=== PATIENT | female | born 1965 ===

== ENCOUNTER 2018-03-17 23:44 | Inpatient (IN) | payer MEDICAID, OTHER ==
[2018-03-18 00:32] LABS: BASO # 0.1 K/uL (0.0-0.2); BASO % 0.5 % (0.0-2.0); EOS # 0.2 K/uL (0.0-0.7); EOS % 1.6 % (0.0-4.0); HEMOGLOBIN 12.2 g/dL (12.0-16.0); LYMPH % 24.2 % (20.0-40.0); MEAN CELL VOLUME 91.8 fl (81.0-99.0); MEAN CORPUSCULAR HEMOGLOBIN 30.8 pg (27.0-31.0); MEAN CORPUSCULAR HGB CONC 33.5 g/dL (33.0-37.0); MEAN PLATELET VOLUME 9.9 fl (7.2-11.7); MONO % 7.9 % (0.0-10.0); NEUT # 8.2 K/uL (1.8-7.0); NEUT % 65.8 % (50.0-75.0); RBC 3.97 Mil/uL (3.80-5.20); WHITE BLOOD COUNT 12.5 K/uL (4.8-10.8)
[2018-03-18 00:42] LABS: ALB/GLOB RATIO 1.3 (1.0-2.1); ALBUMIN 4.4 g/dL (3.5-5.0); ALT/SGPT 22 U/L (9-52); AST/SGOT 24 U/L (14-36); BLOOD UREA NITROGEN 18 mg/dl (7-17); GFR NON-AFRICAN AMERICAN > 60; LIPASE 36 U/L (23-300)
--- NOTE | 2018-03-18 00:42 | ED PDOC ---
HPI: Abdomen Time Seen by Provider: 03/17/18 23:59 Chief Complaint (Nursing): Abdominal Pain Chief Complaint (Provider): Abdominal Pain History Per: Patient History/Exam Limitations: no limitations Onset/Duration Of Symptoms: Days (x2) Current Symptoms Are (Timing): Still Present Additional Complaint(s): 52 year old female with pmHx of tachycardia, presents to ED with intermittent abdominal pain associated with nausea, rectal discomfort and burning sensation ongoing for 2 days. Patient states symptoms are similar to her chronic abdominal pain status post cholecystectomy 8 years ago. She denies any fever, weight loss, vomiting, bloody stools, or change in bowel movements. PMD: [facility] Past Medical History Reviewed: Historical Data, Nursing Documentation, Vital Signs Vital Signs: Last Vital Signs Temp 98.5 F 03/18/18 04:38 Pulse 85 03/18/18 05:01 Resp 18 03/18/18 05:01 BP 105/67 03/18/18 04:38 Pulse Ox 97 03/18/18 05:01 - Medical History PMH: Anxiety Denies: Peripheral Edema Other PMH: tachycardia - Surgical History Surgical History: Cholecystectomy - Family History Family History: States: Unknown Family Hx - Social History Current smoker - smoking cessation education provided: No Alcohol: None Drugs: Denies - Home Medications Home Medications: Ambulatory Orders Medication Instructions Recorded Propranolol [Propranolol HCl] 10 mg PO PRN PRN 03/18/18 - Allergies Allergies/Adverse Reactions: Allergies Allergy/AdvReac Type Severity Reaction Status Date / Time morphine Allergy RASH Verified 03/17/18 23:54 Review of Systems ROS Statement: Except As Marked, All Systems Reviewed And Found Negative Constitutional: Negative for: Fever, Weight loss Gastrointestinal: Positive for: Abdominal Pain, Rectal Pain (discomfort; burning ). Negative for: Vomiting, Diarrhea, Constipation, Hematochezia Physical Exam - Reviewed Nursing Documentation Reviewed: Yes Vital Signs Reviewed: Yes - Physical Exam Appears: Positive for: Non-toxic, No Acute Distress Head Exam: Positive for: ATRAUMATIC, NORMAL INSPECTION, NORMOCEPHALIC Skin: Positive for: Normal Color Eye Exam: Positive for: Normal appearance ENT: Positive for: Normal ENT Inspection Neck: Positive for: Normal Cardiovascular/Chest: Positive for: Regular Rate, Rhythm Respiratory: Positive for: Normal Breath Sounds. Negative for: Respiratory Distress Gastrointestinal/Abdominal: Positive for: Soft, Tenderness (LLQ) Extremity: Positive for: Normal ROM (upper/lower) Neurologic/Psych: Positive for: Alert, Oriented. Negative for: Motor/Sensory Deficits - Laboratory Results Result Diagrams: 03/18/18 00:25 03/18/18 00:25 Urine POC: Negative - ECG O2 Sat by Pulse Oximetry: 100 (RA) Pulse Ox Interpretation: Normal Medical Decision Making Medical Decision Making: Initial Impression: 52 year old female with LLQ pain. Initial Plan: * CT ABD/pelvis with IV contrast * Labs Time: 7 --Patient declined pain medications when offered by provider. Time: 135 --CT ABD/pelvis FINDINGS: Lower thorax: No acute findings. ABDOMEN: Liver: Fatty liver. Gallbladder and bile ducts: Cholecystectomy. Pancreas: Normal. No ductal dilation. Spleen: Normal. No splenomegaly. Adrenals: Low density right adrenal nodule which is new when compared to prior examination. Lowdensity left adrenal nodule which was seen on prior examination. Statistically these can represent adrenal adenomas. Correlation with patient's clinical diagnosis is recommended. Kidneys and ureters: Normal. No hydronephrosis. Stomach and bowel: There is left lower quadrant diverticulosis without colonic thickening and surrounding inflammatory change representing acute diverticulitis. There is paracolic fluid and infiltration. Appendix: Appendix is seen and is top normal in thickness measuring 6 to 7 mm with no periappendiceal stranding. PELVIS: Bladder: Partially distended bladder. Reproductive: Uterus is seen. ABDOMEN and PELVIS: Intraperitoneal space: Left lower quadrant mesenteric infiltration in left paracolic fluid. Bones/joints: No acute fracture. No dislocation. Soft tissues: Bilateral gluteus subcutaneous calcified granulomas. Vasculature: Normal. No abdominal aortic aneurysm. Lymph nodes: There are subcentimeter mesenteric and right lower quadrant lymph nodes. IMPRESSION: 1. There is left lower quadrant diverticulosis without colonic thickening and surrounding inflammatory change representing acute diverticulitis. There is paracolic fluid and infiltration. No abscess or free air is noted. 2. Adrenal nodules as described.Correlation with clinical evaluation and further workup or followup as recommended by patient's clinical data. Time: 221 --Case referred to admission resident, Dr. Barbosa, for diverticulitis. Scribe Attestation: Documented by Kassy Trujillo, acting as a scribe for Ryan Talbert MD. Provider Scribe Attestation: All medical record entries made by the Scribe were at my direction and personally dictated by me. I have reviewed the chart and agree that the record accurately reflects my personal performance of the history, physical exam, medical decision making, and the department course for this patient. I have also personally directed, reviewed, and agree with the discharge instructions and disposition. Disposition - Clinical Impression Clinical Impression: Diverticulitis - Patient ED Disposition Is Patient to be Admitted: Yes - Disposition Disposition Time: 02:00 Condition: FAIR
[2018-03-18 00:47] LABS: SQUAMOUS EPITHIAL 7 /hpf (0-5); URINE BACTERIA RARE (<OCC); URINE BILIRUBIN NEGATIVE (NEGATIVE); URINE BLOOD MODERATE (NEGATIVE); URINE CLARITY CLOUDY (Clear); URINE COLOR YELLOW (YELLOW); URINE GLUCOSE (UA) NEG (Normal); URINE LEUKOCYTE ESTERASE LARGE Leu/uL (Negative); URINE PROTEIN NEGATIVE (NEGATIVE); URINE UROBILINOGEN 0.2-1.0 mg/dL (0.2-1.0)
[2018-03-18] MEDS ORDERED: Sodium Chloride 0.9% 50 ML IV ONE (00:48)
[2018-03-18] MEDS ORDERED: Iohexol 300 100 ML IJ ONE (00:48)
[2018-03-18] MEDS ORDERED: metroNIDAZOLE 500mg/100ml NS 100 ML IVPB STA (02:21)
[2018-03-18] MEDS ORDERED: Ciprofloxacin 400mg/200ml D5W 400 MG/200 ML BAG IV STA (02:21)
[2018-03-18] MEDS ORDERED: Potassium Chloride 20 mEq ER Tab PO ONE (03:41)
[2018-03-18] MEDS ORDERED: Lactated Ringer's 1,000 ML IV SCH (03:45)
--- NOTE | 2018-03-18 03:55 | CP.PCM.HP ---
History of Present Illness - History of Present Illness History of Present Illness: 52 yo female with pmhx of anxiety and tachycardia presents to [facility] ED with complaints of intermittent LLQ abdominal pain x 2 days associated with nausea and subjective fever for 1 day. Pain is non-radiating, 5/10, worse with straining/lifting heavy objects and partially relieved with applying ice. Reports some rectal discomfort during defecation. Pt also reports dysuria and urinary frequency x 10 days. Denies vomiting, constipation, bloody or dark stool or rectal mass. Denies any hx hemorrhoids or diverticular disease. Denies hematuria, vaginal bleeding, or vaginal discharge. LMP: 2 yrs ago. ROS: all 12 systems reviewed and negative except as mentioned in HPI PMD: [facility] Pmhx: anxiety, sinus tachycardia Medications: propranolol 10 mg po daily Allergies: morphine Surgeries: Cholecystectomy Social hx: denies smoking cigarettes, drinking alcohol or using drugs Family hx: denies family hx colon CA, IBD, DMII Present on Admission - Present on Admission Any Indicators Present on Admission: Yes Review of Systems - Review of Systems All systems: reviewed and no additional remarkable complaints except (as mentioned in HPI) Past Patient History - Past Social History Alcohol: None Drugs: Denies - CARDIAC Hx Peripheral Edema: No - PSYCHIATRIC Hx Anxiety: Yes - SURGICAL HISTORY Hx Cholecystectomy: Yes - ANESTHESIA Hx Anesthesia: Yes Hx Anesthesia Reactions: No Meds Allergies/Adverse Reactions: Allergies Allergy/AdvReac Type Severity Reaction Status Date / Time morphine Allergy RASH Verified 03/17/18 23:54 Physical Exam - Constitutional Appears: Non-toxic, No Acute Distress - Head Exam Head Exam: ATRAUMATIC, NORMAL INSPECTION - Eye Exam Eye Exam: EOMI, Normal appearance, PERRL. absent: Scleral icterus - ENT Exam ENT Exam: Mucous Membranes Moist - Neck Exam Neck exam: Positive for: Full Rom, Normal Inspection. Negative for: Meningismus - Respiratory Exam Respiratory Exam: Clear to Auscultation Bilateral, NORMAL BREATHING PATTERN. absent: Rhonchi, Wheezes - Cardiovascular Exam Cardiovascular Exam: REGULAR RHYTHM, RRR, +S1, +S2 - GI/Abdominal Exam GI & Abdominal Exam: Normal Bowel Sounds, Soft, Tenderness (moderate at LLQ). absent: Guarding, Rebound - Back Exam Additional comments: Mild B/L CVA tenderness - Neurological Exam Neurological exam: Alert, Oriented x3 - Psychiatric Exam Psychiatric exam: Normal Affect, Normal Mood - Skin Skin Exam: Normal Color, Warm Results - Vital Signs Recent Vital Signs: Last Vital Signs Temp 98 F 03/17/18 23:54 Pulse 85 03/17/18 23:54 Resp 18 03/17/18 23:54 BP 117/72 03/17/18 23:54 Pulse Ox 100 03/18/18 02:59 - Labs Result Diagrams: 03/18/18 00:25 03/18/18 00:25 Labs: Laboratory Results - last 24 hr 03/18/18 03/18/18 03/18/18 00:25 00:25 00:25 WBC 12.5 H D RBC 3.97 Hgb 12.2 Hct 36.5 MCV 91.8 MCH 30.8 MCHC 33.5 RDW 13.0 Plt Count 191 MPV 9.9 Neut % (Auto) 65.8 Lymph % (Auto) 24.2 [place] % (Auto) 7.9 Eos % (Auto) 1.6 Baso % (Auto) 0.5 Neut # (Auto) 8.2 H Lymph # (Auto) 3.0 [place] # (Auto) 1.0 H Eos # (Auto) 0.2 Baso # (Auto) 0.1 Sodium 140 Potassium 3.4 L Chloride 104 Carbon Dioxide 28 Anion Gap 11 BUN 18 H Creatinine 0.6 L Est GFR ( Amer) > 60 Est GFR (Non-Af Amer) > 60 Random Glucose 107 H Lactic Acid Calcium 9.0 Total Bilirubin 0.3 AST 24 ALT 22 Alkaline Phosphatase 87 Total Protein 7.7 Albumin 4.4 Globulin 3.4 Albumin/Globulin Ratio 1.3 Lipase 36 Urine Color Yellow Urine Clarity Cloudy Urine pH 6.0 Ur Specific [place] 1.025 Urine Protein Negative Urine Glucose (UA) Neg Urine Ketones Negative Urine Blood Moderate Urine Nitrate Negative Urine Bilirubin Negative Urine Urobilinogen 0.2-1.0 Ur Leukocyte Esterase Large Urine RBC (Auto) 11 H Urine Microscopic WBC 22 H Ur Squamous Epith Cells 7 H Urine Bacteria Rare 03/18/18 02:57 WBC RBC Hgb Hct MCV MCH MCHC RDW Plt Count MPV Neut % (Auto) Lymph % (Auto) [place] % (Auto) Eos % (Auto) Baso % (Auto) Neut # (Auto) Lymph # (Auto) [place] # (Auto) Eos # (Auto) Baso # (Auto) Sodium Potassium Chloride Carbon Dioxide Anion Gap BUN Creatinine Est GFR ( Amer) Est GFR (Non-Af Amer) Random Glucose Lactic Acid 0.8 Calcium Total Bilirubin AST ALT Alkaline Phosphatase Total Protein Albumin Globulin Albumin/Globulin Ratio Lipase Urine Color Urine Clarity Urine pH Ur Specific [place] Urine Protein Urine Glucose (UA) Urine Ketones Urine Blood Urine Nitrate Urine Bilirubin Urine Urobilinogen Ur Leukocyte Esterase Urine RBC (Auto) Urine Microscopic WBC Ur Squamous Epith Cells Urine Bacteria Assessment & Plan - Assessment and Plan (Free Text) Assessment: Assessment: 52 yo female with pmhx of anxiety and tachycardia presents to [facility] ED with complaints of intermittent LLQ abdominal pain x 2 days associated with nausea and subjective fever for 1 day. Admitted for management of acute diverticulitis. Plan: 1. Acute diverticulitis: CT of abdomen and pelvis: IMPRESSION: There is left lower quadrant diverticulosis without colonic thickening and surrounding inflammatory change representing acute diverticulitis. There is paracolic fluid and infiltration. No abscess or free air is noted. -afebrile, stable vs -mild leukocytosis, wbc 12.5 -Ciprofloxacin 400mg ivpb q12 -Flagyl 500 mg ivpb q8h -NPO -IVF LR @125 cc/hr -Pain management: Toradol 30 mg ivp q6h prn -f/u cbc 2. UTI: -UA: large leuk and moderate blood -c/w ciprofloxacin -f/u urine c&s 3. Hypokalemia: -K 3.4 -kcl 20 meq -f/u bmp 4. Adrenal adenoma by CT: Adrenals: Low density right adrenal nodule which is new when compared to prior examination. Lowdensity left adrenal nodule which was seen on prior examination. Statistically these can represent adrenal adenomas. Correlation with patient's clinical diagnosis is recommended. -f/u outpatient
[2018-03-18] MEDS: metroNIDAZOLE 500mg/100ml NS 100 ML IVPB SCH ×2 (04:55→10:00)
[2018-03-18 07:39] LABS: BASO % 0.3 % (0.0-2.0); EOS # 0.1 K/uL (0.0-0.7); EOS % 0.8 % (0.0-4.0); HEMOGLOBIN 11.6 g/dL (12.0-16.0); LYMPH # 2.3 K/uL (1.0-4.3); LYMPH % 19.5 % (20.0-40.0); MEAN CELL VOLUME 90.9 fl (81.0-99.0); MEAN CORPUSCULAR HEMOGLOBIN 30.8 pg (27.0-31.0); MEAN CORPUSCULAR HGB CONC 33.9 g/dL (33.0-37.0); MEAN PLATELET VOLUME 10.6 fl (7.2-11.7); MONO # 0.9 K/uL (0.0-0.8); MONO % 7.7 % (0.0-10.0); NEUT # 8.5 K/uL (1.8-7.0); NEUT % 71.7 % (50.0-75.0); RBC 3.77 Mil/uL (3.80-5.20); RED CELL DISTRIBUTION WIDTH 13.2 % (11.5-14.5); WHITE BLOOD COUNT 11.8 K/uL (4.8-10.8)
[2018-03-18 08:05] VITALS: BP 104/52; PULSE 80; RESP 20; TEMP 98.4; O2SAT 98
[2018-03-18 08:05] LABS: BLOOD UREA NITROGEN 10 mg/dl (7-17); CALCIUM 8.9 mg/dL (8.4-10.2); GFR NON-AFRICAN AMERICAN > 60
--- NOTE | 2018-03-18 08:55 | CT ---
Date of service: 03/18/2018 PROCEDURE: CT Abdomen and Pelvis without intravenous contrast HISTORY: LLQ pain COMPARISON: 2011. TECHNIQUE: Technique. Contrast dose: Radiation dose: Total exam DLP = mGy-cm. This CT exam was performed using one or more of the following dose reduction techniques: Automated exposure control, adjustment of the mA and/or kV according to patient size, and/or use of iterative reconstruction technique. FINDINGS: LOWER THORAX: Unremarkable. LIVER: Unremarkable. No gross lesion or ductal dilatation. GALLBLADDER AND BILE DUCTS: Colace. PANCREAS: Unremarkable. No gross lesion or ductal dilatation. SPLEEN: Unremarkable. ADRENALS: Bilateral adrenal nodules. Essentially new since prior exam. Recommend correlation with noncontrast gradient echo MRI. KIDNEYS AND URETERS: Unremarkable. No hydronephrosis. No solid mass. VASCULATURE: Unremarkable. No aortic aneurysm. BOWEL: Sigmoid colon acute diverticulitis without abscess or pneumoperitoneum. APPENDIX: Unremarkable. Normal appendix. PERITONEUM: Unremarkable. No free fluid. No free air. LYMPH NODES: Unremarkable. No enlarged lymph nodes. BLADDER: Unremarkable. REPRODUCTIVE: Unremarkable. BONES: No acute fracture. OTHER FINDINGS: None. IMPRESSION: Sigmoid colon acute diverticulitis without abscess or pneumoperitoneum. Bilateral adrenal nodules. Essentially new since prior exam. Recommend correlation with noncontrast gradient echo MRI.
[2018-03-18] MEDS ORDERED: Pneumococcal 23-Valent Vaccine IM ONE (09:00)
[2018-03-18] MEDS ORDERED: Enoxaparin 40 mg Syringe SC SCH (09:00)
[2018-03-18] MEDS ORDERED: Pantoprazole 40 mg EC Tab PO SCH (09:00)
--- NOTE | 2018-03-18 09:56 | CP.PCM.DIS ---
<Juana Good - Last Filed: 03/18/18 15:53> Provider - Provider Date of Admission: 03/18/18 02:22 Attending physician: Dany Cotton Time Spent in preparation of Discharge (in minutes): 35 Diagnosis - Discharge Diagnosis (1) Diverticulitis Status: Acute Hospital Course - Lab Results Lab Results: Most Recent Lab Values WBC 11.8 K/uL (4.8-10.8) H 03/18/18 06:30 RBC 3.77 Mil/uL (3.80-5.20) L 03/18/18 06:30 Hgb 11.6 g/dL (12.0-16.0) L 03/18/18 06:30 Hct 34.2 % (34.0-47.0) 03/18/18 06:30 MCV 90.9 fl (81.0-99.0) 03/18/18 06:30 MCH 30.8 pg (27.0-31.0) 03/18/18 06:30 MCHC 33.9 g/dL (33.0-37.0) 03/18/18 06:30 RDW 13.2 % (11.5-14.5) 03/18/18 06:30 Plt Count 188 K/uL (130-400) 03/18/18 06:30 MPV 10.6 fl (7.2-11.7) 03/18/18 06:30 Neut % (Auto) 71.7 % (50.0-75.0) 03/18/18 06:30 Lymph % (Auto) 19.5 % (20.0-40.0) L 03/18/18 06:30 [place] % (Auto) 7.7 % (0.0-10.0) 03/18/18 06:30 Eos % (Auto) 0.8 % (0.0-4.0) 03/18/18 06:30 Baso % (Auto) 0.3 % (0.0-2.0) 03/18/18 06:30 Neut # (Auto) 8.5 K/uL (1.8-7.0) H 03/18/18 06:30 Lymph # (Auto) 2.3 K/uL (1.0-4.3) 03/18/18 06:30 [place] # (Auto) 0.9 K/uL (0.0-0.8) H 03/18/18 06:30 Eos # (Auto) 0.1 K/uL (0.0-0.7) 03/18/18 06:30 Baso # (Auto) 0.0 K/uL (0.0-0.2) 03/18/18 06:30 Sodium 140 mmol/l (132-148) 03/18/18 06:30 Potassium 4.0 MMOL/L (3.6-5.0) 03/18/18 06:30 Chloride 106 mmol/L (98-107) 03/18/18 06:30 Carbon Dioxide 26 mmol/L (22-30) 03/18/18 06:30 Anion Gap 12 (10-20) 03/18/18 06:30 BUN 10 mg/dl (7-17) 03/18/18 06:30 Creatinine 0.4 mg/dl (0.7-1.2) L 03/18/18 06:30 Est GFR ( Amer) > 60 03/18/18 06:30 Est GFR (Non-Af Amer) > 60 03/18/18 06:30 Random Glucose 109 mg/dL (65-105) H 03/18/18 06:30 Lactic Acid 0.8 MMOL/L (0.7-2.1) 03/18/18 02:57 Calcium 8.9 mg/dL (8.4-10.2) 03/18/18 06:30 Total Bilirubin 0.3 mg/dl (0.2-1.3) 03/18/18 00:25 AST 24 U/L (14-36) 03/18/18 00:25 ALT 22 U/L (9-52) 03/18/18 00:25 Alkaline Phosphatase 87 U/L (38-126) 03/18/18 00:25 Total Protein 7.7 G/DL (6.3-8.2) 03/18/18 00:25 Albumin 4.4 g/dL (3.5-5.0) 03/18/18 00:25 Globulin 3.4 gm/dL (2.2-3.9) 03/18/18 00:25 Albumin/Globulin Ratio 1.3 (1.0-2.1) 03/18/18 00:25 Lipase 36 U/L (23-300) 03/18/18 00:25 Urine Color Yellow (YELLOW) 03/18/18 00:25 Urine Clarity Cloudy (Clear) 03/18/18 00:25 Urine pH 6.0 (5.0-8.0) 03/18/18 00:25 Ur Specific [place] 1.025 (1.003-1.030) 03/18/18 00:25 Urine Protein Negative mg/dL (NEGATIVE) 03/18/18 00:25 Urine Glucose (UA) Neg mg/dL (Normal) 03/18/18 00:25 Urine Ketones Negative mg/dL (NEGATIVE) 03/18/18 00:25 Urine Blood Moderate (NEGATIVE) 03/18/18 00:25 Urine Nitrate Negative (NEGATIVE) 03/18/18 00:25 Urine Bilirubin Negative (NEGATIVE) 03/18/18 00:25 Urine Urobilinogen 0.2-1.0 mg/dL (0.2-1.0) 03/18/18 00:25 Ur Leukocyte Esterase Large Corbin/uL (Negative) 03/18/18 00:25 Urine RBC (Auto) 11 /hpf (0-3) H 03/18/18 00:25 Urine Microscopic WBC 22 /hpf (0-5) H 03/18/18 00:25 Ur Squamous Epith Cells 7 /hpf (0-5) H 03/18/18 00:25 Urine Bacteria Rare (<OCC) 03/18/18 00:25 - Hospital Course Hospital Course: 52 yo female with pmhx of anxiety and tachycardia presents to [facility] ED with complaints of intermittent LLQ abdominal pain x 2 days associated with nausea and subjective fever for 1 day. Pain is non-radiating, 5/10, worse with straining/lifting heavy objects and partially relieved with applying ice. Reports some rectal discomfort during defecation. Pt also reports dysuria and urinary frequency x 10 days. Denies vomiting, constipation, bloody or dark stool or rectal mass. Denies any hx hemorrhoids or diverticular disease. Denies hematuria, vaginal bleeding, or vaginal discharge. LMP: [address] in ED showed left lower quadrant diverticulosis without colonic thickening and surrounding inflammatory change representing acute diverticulitis. Also showed adrenal adenoma (recc f/u outpatient). Patient was admitted for management of acute diverticulosis and given Ciprofloxacin 400mg ivpb q12 and Flagyl 500 mg ivpb q8h and kept NPO with IVF LR @125 cc/hr. Her pain was managed with Toradol 30 mg ivp q6h PRN. Patient symptoms significantly improved, she remained hemodynamically stable and was cleared for discharge as per medicine team with PO Ciprofloxacin 500 mg Q12 #14 tab, Flagyl 500 mg Q8 #24 tab, and Tylenol 650 mg PO Q8 #30 tab. Recommended follow up with PMD in 2-3 days to be clinically assessed. Discharge Exam - Head Exam Head Exam: ATRAUMATIC, NORMAL INSPECTION, NORMOCEPHALIC - Eye Exam Eye Exam: Normal appearance Pupil Exam: NORMAL ACCOMODATION - ENT Exam ENT Exam: Mucous Membranes Moist - Respiratory Exam Respiratory Exam: Clear to PA & Lateral, NORMAL BREATHING PATTERN - Cardiovascular Exam Cardiovascular Exam: REGULAR RHYTHM - GI/Abdominal Exam GI & Abdominal Exam: Tenderness - Neurological Exam Neurological exam: Alert, Oriented x3 - Psychiatric Exam Psychiatric exam: Normal Affect, Normal Mood - Skin Skin Exam: Dry, Intact, Normal Color, Warm Discharge Plan - Discharge Medications Prescriptions: Acetaminophen [Tylenol 325mg tab] 650 mg PO Q8 #30 tab Ciprofloxacin [Cipro] 500 mg PO Q12 #14 tab Metronidazole [Flagyl] 500 mg PO Q8 #24 tablet - Follow Up Plan Condition: FAIR Disposition: HOME/ ROUTINE Instructions: Diverticulitis Referrals: [facility] [Provider Group] <Jodi Cline - Last Filed: 03/18/18 17:17> Provider - Provider Date of Admission: 03/18/18 02:22 Attending physician: Dany Cotton [place] [facility] Course - Lab Results Lab Results: Most Recent Lab Values WBC 11.8 K/uL (4.8-10.8) H 03/18/18 06:30 RBC 3.77 Mil/uL (3.80-5.20) L 03/18/18 06:30 Hgb 11.6 g/dL (12.0-16.0) L 03/18/18 06:30 Hct 34.2 % (34.0-47.0) 03/18/18 06:30 MCV 90.9 fl (81.0-99.0) 03/18/18 06:30 MCH 30.8 pg (27.0-31.0) 03/18/18 06:30 MCHC 33.9 g/dL (33.0-37.0) 03/18/18 06:30 RDW 13.2 % (11.5-14.5) 03/18/18 06:30 Plt Count 188 K/uL (130-400) 03/18/18 06:30 MPV 10.6 fl (7.2-11.7) 03/18/18 06:30 Neut % (Auto) 71.7 % (50.0-75.0) 03/18/18 06:30 Lymph % (Auto) 19.5 % (20.0-40.0) L 03/18/18 06:30 [place] % (Auto) 7.7 % (0.0-10.0) 03/18/18 06:30 Eos % (Auto) 0.8 % (0.0-4.0) 03/18/18 06:30 Baso % (Auto) 0.3 % (0.0-2.0) 03/18/18 06:30 Neut # (Auto) 8.5 K/uL (1.8-7.0) H 03/18/18 06:30 Lymph # (Auto) 2.3 K/uL (1.0-4.3) 03/18/18 06:30 [place] # (Auto) 0.9 K/uL (0.0-0.8) H 03/18/18 06:30 Eos # (Auto) 0.1 K/uL (0.0-0.7) 03/18/18 06:30 Baso # (Auto) 0.0 K/uL (0.0-0.2) 03/18/18 06:30 Sodium 140 mmol/l (132-148) 03/18/18 06:30 Potassium 4.0 MMOL/L (3.6-5.0) 03/18/18 06:30 Chloride 106 mmol/L (98-107) 03/18/18 06:30 Carbon Dioxide 26 mmol/L (22-30) 03/18/18 06:30 Anion Gap 12 (10-20) 03/18/18 06:30 BUN 10 mg/dl (7-17) 03/18/18 06:30 Creatinine 0.4 mg/dl (0.7-1.2) L 03/18/18 06:30 Est GFR ( Amer) > 60 03/18/18 06:30 Est GFR (Non-Af Amer) > 60 03/18/18 06:30 Random Glucose 109 mg/dL (65-105) H 03/18/18 06:30 Lactic Acid 0.8 MMOL/L (0.7-2.1) 03/18/18 02:57 Calcium 8.9 mg/dL (8.4-10.2) 03/18/18 06:30 Total Bilirubin 0.3 mg/dl (0.2-1.3) 03/18/18 00:25 AST 24 U/L (14-36) 03/18/18 00:25 ALT 22 U/L (9-52) 03/18/18 00:25 Alkaline Phosphatase 87 U/L (38-126) 03/18/18 00:25 Total Protein 7.7 G/DL (6.3-8.2) 03/18/18 00:25 Albumin 4.4 g/dL (3.5-5.0) 03/18/18 00:25 Globulin 3.4 gm/dL (2.2-3.9) 03/18/18 00:25 Albumin/Globulin Ratio 1.3 (1.0-2.1) 03/18/18 00:25 Lipase 36 U/L (23-300) 03/18/18 00:25 Urine Color Yellow (YELLOW) 03/18/18 00:25 Urine Clarity Cloudy (Clear) 03/18/18 00:25 Urine pH 6.0 (5.0-8.0) 03/18/18 00:25 Ur Specific [place] 1.025 (1.003-1.030) 03/18/18 00:25 Urine Protein Negative mg/dL (NEGATIVE) 03/18/18 00:25 Urine Glucose (UA) Neg mg/dL (Normal) 03/18/18 00:25 Urine Ketones Negative mg/dL (NEGATIVE) 03/18/18 00:25 Urine Blood Moderate (NEGATIVE) 03/18/18 00:25 Urine Nitrate Negative (NEGATIVE) 03/18/18 00:25 Urine Bilirubin Negative (NEGATIVE) 03/18/18 00:25 Urine Urobilinogen 0.2-1.0 mg/dL (0.2-1.0) 03/18/18 00:25 Ur Leukocyte Esterase Large [place]bin/uL (Negative) 03/18/18 00:25 Urine RBC (Auto) 11 /hpf (0-3) H 03/18/18 00:25 Urine Microscopic WBC 22 /hpf (0-5) H 03/18/18 00:25 Ur Squamous Epith Cells 7 /hpf (0-5) H 03/18/18 00:25 Urine Bacteria Rare (<OCC) 03/18/18 00:25 Attending/Attestation - Attestation I have personally seen and examined this patient.: Yes I have fully participated in the care of the patient.: Yes I have reviewed all pertinent clinical information, including history, physical exam and plan: Yes Notes (Text): 03/18/18 17:17 Seen, examined, and discussed with residents in great detail. Agree with findings and plan as above.
[2018-03-18] MEDS ORDERED: Ciprofloxacin 400mg/200ml D5W 400 MG/200 ML BAG IVPB SCH (14:00)
--- NOTE | 2018-03-18 17:41 | CARD ---
APPROVED REPORT Date of service: 03/18/2018 EKG Measurement Heart [id number] MD [id number] <Conclusion> Normal sinus rhythm Normal ECG
== END 2018-03-18 14:51 | disposition home or self-care (01) | DRG 392 ==
LOC: H.ER 23:44 → H.ERHOLD 03-18 02:22 → H.MEDSURG1 03-18 04:25
PROVIDERS: ADMIT Internal Medicine; ATTEND Internal Medicine
PROC: 3E0234Z Introduction of Serum, Toxoid and Vaccine into Muscle, Percutaneous Approach (ICD-10-PCS; principal; 2018-03-18)
DX: K57.92 Diverticulitis of intestine, part unspecified, without perforation or abscess without bleeding (principal); F41.9 Anxiety disorder, unspecified; D35.00 Benign neoplasm of unspecified adrenal gland; Z23 Encounter for immunization